=== PATIENT | male | born 1960 | race American Indian/Alaskan Native ===

== ENCOUNTER 2018-02-13 15:05 | Emergency (ER) | payer SELFPAY ==
[2018-02-13 15:38] VITALS: BP 132/91
[2018-02-13] MEDS ORDERED: ASPIRIN PO ONE (15:38)
[2018-02-13] MEDS ORDERED: ASPIRIN ONE (15:39)
[2018-02-13 15:57] LABS: Basophils % (Auto) 0.4 % (0.0-1.8); Eosinophils # (Auto) 0.1 K/mm3 (0.0-0.4); Eosinophils % (Auto) 0.9 % (0.0-4.3); Hematocrit 37.3 % (35.5-45.6); Hemoglobin 12.3 gm/dl (11.8-15.2); Lymphocytes % (Auto) 19.5 % (13.4-35.0); Mean Corpuscular HGB Conc 33 % (32-34); Mean Corpuscular Hemoglobin 31 pg (28-32); Mean Corpuscular Volume 93 fl (84-94); Monocytes # (Auto) 1.5 K/mm3 (0.0-0.8); Monocytes % (Auto) 14.3 % (0.0-7.3); Platelet Count 374 K/mm3 (140-440); Red Blood Count 4.01 M/mm3 (3.65-5.03); Red Cell Distribution Width 12.6 % (13.2-15.2)
[2018-02-13 16:10] LABS: BUN/Creatinine Ratio 14; Blood Urea Nitrogen 10 mg/dL (9-20); Calcium 9.4 mg/dL (8.4-10.2); Hemolysis Index 5
== END 2018-02-13 23:46 | disposition left against medical advice (07) ==
LOC: ED 15:05
DX: R07.9 Chest pain, unspecified (principal); Z53.21 Procedure and treatment not carried out due to patient leaving prior to being seen by health care provider
CPT/HCPCS: 36415; 80048; 84484; 85025; 93005; 93010